=== PATIENT | female | born 1995 | race Caucasian/White ===

== ENCOUNTER 2022-10-08 23:47 | Emergency (ER) | payer BC, SELFPAY ==
[2022-10-08 23:51] VITALS: BP 151/88; PULSE 80; RESP 16; TEMP 36.5; O2SAT 100
--- NOTE | 2022-10-09 01:21 | ED.EXTPRO ---
HPI - Extremity Problem General Chief complaint: Extremity Problem,Nontraumatic Stated complaint: left leg knot Time Seen by Provider: 10/09/22 01:14 History of Present Illness HPI Narrative: 27-year-old female reports for evaluation of a lump to her left lower extremity she is concerned it is a blood clot. States she noticed it after she got out of the shower tonight and wanted to come to the ED to make sure it was not a blood clot. She denies lower extremity swelling, recent surgeries or hospitalizations, use of OCPs, history of VTE, chest pain or shortness of breath. Denies known injury, however states she bumps into things frequently. Review of Systems Review of Systems: CONSTITUTIONAL: Denies fever, chills EYES: Denies visual changes, redness, or discharge. ENT: Denies rhinorrhea, congestion, sore throat, or otalgia. CARDIOVASCULAR: Denies chest pain, palpitations, or edema. RESPIRATORY: Denies cough or dyspnea. GASTROINTESTINAL: Denies abdominal pain, nausea, vomiting, or diarrhea. GENITOURINARY: Denies dysuria or hematuria. SKIN: Denies rash or itching. MUSCULOSKELETAL: See HPI NEUROLOGIC: Denies headache, numbness, dizziness, or weakness. PSYCHIATRIC: Denies anxiety or depression. Exam Narrative: GENERAL: Well-appearing, in no acute distress. HEAD: Normocephalic NECK: Supple. CHEST: No respiratory distress. Clear to auscultation, no adventitious breath sounds. HEART: Regular rate and rhythm. No murmur heard. Normal peripheral pulses. EXTREMITIES: LLE: 1cm nodule with small amount of overlying ecchymosis to anterior aspect of L tibia. No edema or calf tenderness. Negative Homans' sign. DP pulse 2+. Sensation intact throughout. Ambulating without difficulty. SKIN: Warm, dry, no rash. NEURO: No focal deficits. Alert and oriented x3. PSYCH: Normal mood and affect. Course Vital Signs Vital signs: Vital Signs Temperature 97.7 F 10/08/22 23:51 Pulse Rate 80 10/08/22 23:51 Respiratory Rate 16 10/08/22 23:51 Blood Pressure 151/88 H 10/08/22 23:51 Pulse Oximetry 100 10/08/22 23:51 Oxygen Delivery Room Air 10/08/22 23:51 Temperature 97.9 F 10/09/22 01:47 Pulse Rate 81 06/13/23 01:47 Respiratory Rate 14 10/09/22 01:47 Blood Pressure 128/83 10/09/22 01:47 Pulse Oximetry 100 10/09/22 01:47 Oxygen Delivery Room Air 10/08/22 23:51 MDM - Extremity (Nontraumatic) MDM Narrative Medical decision making narrative: 27-year-old female reports for evaluation of a knot to her left trotter that she noticed today after she got out of the shower, she is concerned for DVT. Vitals stable. Exam reveals a nodule to the left tibia with overlying ecchymosis. There is no edema, no tenderness along the venous system, no history of VTE. Wells score is -2. Exam consistent with a contusion. Shared decision making regarding obtaining a D-dimer for reassurance, however patient declines. Encouraged her to follow-up with her PCP within the following week for reevaluation. Strict ED return precautions discussed. Patient agrees with plan verbalized understanding. Discharged in stable condition. Discharge Plan Discharge Clinical Impression: Contusion of left lower leg Qualifiers: Encounter type: initial encounter Qualified Code(s): S80.12XA - Contusion of left lower leg, initial encounter Patient Disposition: Home, Self-Care Condition: Stable Instructions: Antibiotic Form, Leg Pain (ED) Additional Instructions: You were evaluated in the emergency department for a nodule to your left trotter which is consistent with a bruise or injury. Your exam is not concerning for a blood clot. Please follow-up with your primary care provider within the following week to ensure you are healing well. Return to the emergency department if you experience worsening pain, pain to your calf, lower extremity swelling, chest pain, shortness of breath or other concerning symptoms. Follow-up/Referrals: PHYSIC
[2022-10-09 01:47] VITALS: BP 128/83; PULSE 81; RESP 14; TEMP 36.6; O2SAT 100
== END 2022-10-09 01:48 | disposition home or self-care (01) ==
LOC: ANHED 10-09 01:37
PROVIDERS: Emergency Provider Physician Assistant
DX: S80.12XA Contusion of left lower leg, initial encounter (principal); X58.XXXA Exposure to other specified factors, initial encounter
CPT/HCPCS: 99282

== ENCOUNTER → 2023-01-22 08:20 | Outpatient (CLI) | payer BC, SELFPAY ==
--- NOTE | ~2023-01-22 | US_ITS ---
EXAMINATION: US transvaginal DATE: 01/22/2023 08:51 INDICATION: Pelvic and perineal pain. TECHNIQUE: Multiple transvaginal sonographic images of the pelvis were obtained. COMPARISON: None. FINDINGS: The uterus measures 8.0 x 3.5 x 3.7 cm. There is no free fluid in the pelvis. The endometrial complex measures 8 mm in thickness. The right ovary measures 2.9 x 1.8 x 2.2 cm. The left ovary measures 2.2 x 1.2 x 1.4 cm. There is normal vascular flow in the ovaries. IMPRESSION: 1. Normal pelvis. Reviewed, dictated and finalized at location A. IMPRESSION: 1. Normal pelvis.
== END ==
PROVIDERS: PCP Registered Nurse School; Visit Provider Registered Nurse School
DX: R10.2 Pelvic and perineal pain (principal)
CPT/HCPCS: 76830

== ENCOUNTER 2023-03-29 01:13 | Day surgery (SDC) | payer BC, SELFPAY ==
--- NOTE | 2023-03-18 12:16 | SUR.PREOP ---
Report to the Outpatient Waiting Room, entrance under the green pavilion located off [facility], at time 0615 on date 03/29/23. Planned Procedure Time: 0815. Time changes happen often and if your time is changed the preop area will call you the afternoon before. - You and your visitor will be asked to self-screen and do not enter if you have any COVID symptoms. - A mask is optional within the hospital at this time. Patients may have clear liquids (water, carbonated beverages, clear teas, apple juice) until 3 hours prior to surgery with a maximum of 20 ounces. - NO CLEAR LIQUIDS AFTER 0515 - No food from midnight until time of surgery - Infants may have breast milk until 4 hours before surgery, infant formula 6 hours prior to surgery. - Children will be allowed to drink immediately following surgery. If applicable, please bring a bottle or sippy cup to assist with drinking. Juice, water, soda, and popsicles are readily available. For infants on formula, please bring formula the day of surgery. Pacifiers are allowed. Please no make-up, nail danish, hairspray, perfume, deodorant, or body powder the day of surgery. No jewelry (including any body piercings) or valuables the day of surgery, leave them at home. Please take a shower or bath the night before, or the morning of, surgery with an antibacterial soap. Wear comfortable, loose fitting clothing. Children are encouraged to wear pajamas. - Jewelry must be removed prior to entering the operating room. Rings and piercings that are not removed may be cut off. - The hospital will not accept responsibility for valuables. - Please leave all valuables, including medications, at home the day of surgery. If you are going home after surgery, a licensed local company truck driver must drive you home. - NO public transportation without another adult if you receive anesthesia. - We recommend that an adult stay with you for 24 hours following discharge. - We also recommend that you do not drive, make important decision, drink alcoholic beverages, or take any drugs that were not prescribed by your health care provider for at least 24 hours after your discharge time. For Pediatric surgeries, we recommend two adults accompany the child home. Follow any additional instructions given to you from your surgeon. If you or anyone in your household have experienced Covid symptoms in the past week, please notify your surgeon or the nurse liaison at the phone number below for possible testing. Telephone instructions given to NAA RODRIGUEZ and asked if any additional questions and then verbalized understanding. Patient advised to call surgeon office or pre surgery nurse liaison [phone] if any additional questions.
[2023-03-18 12:34] VITALS: BMI 19.2
--- NOTE | 2023-03-26 07:16 | P.HP_ITS ---
H&P: HPI History of Present Illness Date/Time: 03/26/23 07:16 Chief Complaint: Pelvic pain Narrative: This is a 27 year 0 with family history of endometriosis complaining of severe pelvic pain this has been going since June of 2022. She had a CT scan which was-10 ultrasound which was negative and negative STD testing. She has been monogamous and her periods continue to be irregular with pain especially to the right and dyspareunia. She is admitted for laparoscopy. Risks and benefits reviewed including but not exclusive aspiration pneumonia, bleeding, transfusion, perforation injury to bowel, bladder, ureters, or other internal organs with need for open laparotomy. She received the [employer] handout entitled laparoscopy. She had all questions answered. She asked to proceed [facility] Social History Social History Smoking status: Never smoker Living arrangements: with family Spiritual care concerns: No Meds Home Medications and Allergies Home Medications Medication Instructions Recorded Confirmed Type No Home Medications 03/18/23 03/18/23 History Allergies Allergy/AdvReac Type Severity Reaction Status Date / Time No Known Allergies Allergy Verified 03/18/23 12:30 Exam Const: General: cooperative, healthy appearing and comfortable Nutritional Appearance: average body habitus Orientation/consciousness: oriented to person, oriented to place and oriented to time Resp: Effort & Inspection: normal respiratory effort Cardio: Rate: regular rate Rhythm: regular rhythm Heart sounds: S1 normal heart sound present and S2 normal heart sound present GI: Inspection: normal to inspection : External Female Exam: normal external appearance Speculum Exam - Vagina: normal appearance of the vagina Bimanual exam- vagina & uterus: soft Bimanual Exam- Adnexa, other: tender bilaterally Assessment and Plan Assessment and plan (1) Pelvic pain: Code(s): R10.2 - Pelvic and perineal pain Status: Acute Plan Diagnostic laparoscopy
--- NOTE | 2023-03-28 14:09 | P.PNAN_ITS ---
Anes - Initial Pre Proc Eval Procedure: Operation Date: 03/29/23 08:15 Proposed Procedures p Diagnostic Laparoscopy - Smith Weaver MD Date/Time: 03/28/23 14:09 Surgeon: Smith Weaver MD Pre Op Diagnosis: pelvic pain, irr. bleeding,dysmenorrhea Patient Data Age: 27 Gender: F Height: 1.75 m Weight: 59 kg Allergies Allergy/AdvReac Type Severity Reaction Status Date / Time No Known Allergies Allergy Verified 03/29/23 06:45 Home Medications Medication Instructions Recorded Confirmed Type hydrocodone 5 mg-acetaminophen 325 1 tablet PO Q4H PRN pain #20 tabs 03/29/23 Rx mg tablet Patient hx anesthesia problems: none Family hx anesthesia problems: none Results Review: All pre-operative results and documents have been reviewed as part of the pre-operative evaluation. [facility] Past Medical History Medical History (Updated 03/29/23 @ 07:23 by Stephen Marx DO) Anxiety Venous insufficiency Social History Social History Smoking status: Never smoker Living arrangements: with family Spiritual care concerns: No Anes - Eval Final PreProcedure Day of Procedure 03/28/23 14:09 Patient weight: normal Heart: regular rate and rhythm Lungs: clear to auscultation Airway: Mallampati scale class II Neurological: alert and oriented Last oral intake: >/= 8 hours ASA classification: II Emergent: no Anesthetic plan: proceed Anesthesia type and monitoring: general ETT and standard monitoring Results Review: All pre-operative results and documents have been reviewed as part of the pre- operative evaluation. Informed Consent: The patient's anesthetic plan and its attendant risks and benefits were discussed with the patient/family/POA. Questions were solicited and answers provided to the satisfaction of the patient/family/POA.
[2023-03-29] VITALS (9 sets, daily range): BP systolic 101–129; BP diastolic 67–94; PULSE 70–100; RESP 13–20; TEMP 36.6–37.5; O2SAT 99–100
--- NOTE | 2023-03-29 06:35 | WPDHPUPDATE1 ---
History and Physical Update Update Date/Time: 03/29/23 06:35 History and Physical has been reviewed, including an updated exam of the patient. There are NO changes in the patient's condition. Risks, benefits, and alternatives have been discussed and questions answered. Patient agrees to proceed with procedure.
[2023-03-29] MEDS: ACETAMINOPHEN 500 MG TABLET 1000 MG PO (07:24)
[2023-03-29] MEDS: LACTATED RINGERS 1,000 ML 30 ML IV CONT (07:24)
[2023-03-29] MEDS: KETOROLAC 15 MG/ML VIAL (*BKC) IV PUSH (07:27)
--- NOTE | 2023-03-29 08:34 | W.PM.PROC2 ---
Procedure Note - Detailed Date of Procedure 03/29/23 Pre-op Diagnosis pelvic pain, irr. bleeding,dysmenorrhea Post-op Diagnosis Other (Pelvic pain / pelvic adhesions/left ovarian cyst) Procedure Performed laparoscopic destruction left ovarian cyst / lysis of adhesions Surgeon Smith Weaver MD Anesthesia General Indications a 27-year-old female was pelvic discomfort ultrasound findings Findings normal-appearing right ovary tube. Uterus was somewhat inflamed. There was [id number] of serosanguineous fluid the cul-de-sac which was sent for culture. Left ovarian cyst was seen which appeared benign in nature. Adhesions were seen from the colon to the left lateral sidewall and from the to the right sidewalls Description of Procedure patient was prepped draped sterile placed dorsal lithotomy position. Trach anesthesia speculum placed posterior. Anterior the cervix with a tenaculum was cannula inserted cervix and attached to the single-tooth. His these were to be used later for uterine manipulation. Bladder drained clear urine the weighted speculum was removed. The gloves were changed. An infraumbilical incision made in the Veress needle passed in the abdomen. Abdomen filled with CO2 gas [id number]. The 5mm trocar advanced under direct visualization with the Optiview and no injury seen. Patient placed in Trendelenburg and a suprapubic incision made. The 5mm trocar advanced under direct visualization and no injury seen. Serosanguineous fluid in the cul-de-sac was suction removed and irrigated after that. The left ovarian cyst was opened in linear fashion and drained of clear serous fluid multiple adhesions were seen and using the Endoshears these were sharply dissected and relieve the colon from the right and the left. The appendix liver and gallbladder all appeared within normal limits and photo documentation undertaken. Lower sites removed. The gas removed from the abdomen. The upper site removed the incisions closed with 4 Monocryl glue instruments removed from the vagina the patient went recovery in satisfactory condition. All sponge, needle, instrument counts were correct. There were no immediate complications Estimated Blood Loss 5 Drains No Packing No Pathology Other ( cul-de-sac fluid sent for culture) Complications No immediate complications Condition Stable Disposition PACU
[2023-03-29] MEDS: fentaNYL CITRATE INJ (*CRX) 100 MCG/2 ML VIAL 25 MCG IV PUSH ×2 (09:06→09:10)
[2023-03-29] MEDS: oxyCODONE HCL (*CRX) 5 MG TAB IR PO (09:52)
== END 2023-03-29 10:32 | disposition home or self-care (01) ==
PROVIDERS: Visit Provider Obstetrics & Gynecology
PROC: (CPT 49320; principal; 2023-03-29 08:15)
DX: R10.2 Pelvic and perineal pain (principal); F41.9 Anxiety disorder, unspecified; I87.2 Venous insufficiency (chronic) (peripheral); Z79.891 Long term (current) use of opiate analgesic
CPT/HCPCS: 58662; 36415; 86850; 86900; 86901; 87070; 87075; 87076; 87205; A9270; J0330; J1100; J1885; J2250; J2405; J2704; J3010; J7030; J7120